=== PATIENT | male | born 1975 | race Caucasian/White ===

== ENCOUNTER 2020-11-01 03:37 | Emergency (ER) | payer OTHER ==
[2020-11-01] MEDS ORDERED: IBUPROFEN600 MG PO (05:13)
[2020-11-01] MEDS ORDERED: CYCLOBENZAPRINE10 MG PO (05:13)
== END 2020-11-01 05:18 | disposition home or self-care (01) ==
LOC: ER1 03:37
DX: M51.26 Other intervertebral disc displacement, lumbar region (principal); F17.210 Nicotine dependence, cigarettes, uncomplicated
CPT/HCPCS: 72131; 96372; 99283; J1885